=== PATIENT | male | born 1970 | race Two or more races ===

== ENCOUNTER → 2018-05-02 | Outpatient (CLI) | payer OTHER ==
--- NOTE | 2018-05-02 11:58 | REP ---
MRI lumbar spine without contrast: History: Low back pain with radiculopathy symptoms left lower extremity. L5-S1 disc degeneration on radiographs. No comparison imaging is available. Technique: Sagittal and axial T1 and T2-weighted scans are acquired in the usual fashion with and without fat saturation. Sequences include spin echo, turbo spin-echo, and STIR imaging sequences. Findings: Lumbar vertebral body heights are preserved. Alignment is normal. Pedicles and posterior elements are intact. There is no evidence of spondylolysis or spondylolisthesis. Conus medullaris is normal in position and appearance at L1. No extra vertebral abnormality is appreciated. Axial and sagittal images at L1-2, and L2-3 show no significant abnormality. At L3-4, there is degenerative disc narrowing and decreased signal intensity. There is diffuse disc bulging indenting the ventral margin of the thecal sac. Canal size is borderline. No neural foraminal narrowing or focal disc protrusion is seen. At L4-5, there is also some mild degenerative disc disease with narrowing and desiccation. There is diffuse bulging which indents the ventral margin of the thecal sac. There is mild left-sided neural foraminal narrowing at L4-5 due to minimal facet hypertrophy and disc bulging. At L5-S1, there is more pronounced disc space height loss and decreased signal intensity. Posterior and anterior osteophytic ridging is seen. There is mild central disc bulging. No significant thecal sac compression is seen. There is mild facet hypertrophy present bilaterally. Mild bilateral neural foraminal narrowing due to facet hypertrophy and disc bulging. Impression: Degenerative spondylosis changes at the lower three lumbar disc levels as above. There is neural foraminal narrowing at L4-5 and L5-S1. Electronically Signed by Murray Mendez MD 05/02/2018 12:37 P
== END ==
LOC: M RAD 09:06
PROVIDERS: ATTEND Thoracic Surgery (Cardiothoracic Vascular Surgery)
DX: M47.16 Other spondylosis with myelopathy, lumbar region (principal)